=== PATIENT | female | born 1995 | race African-American/Black ===

== ENCOUNTER 2022-07-30 10:10 | Emergency (ER) | payer SELFPAY ==
[2022-07-30] VITALS (8 sets, daily range): BP systolic 137–143; BP diastolic 85–94; PULSE 102–127; RESP 18–20; TEMP 37.6; O2SAT 100; BMI 20.4
[2022-07-30 10:38] LABS: Appearance Urine Clear (Clear); Bilirubin Urine Negative (Negative); Blood Urine Negative (Negative); Color Urine Yellow (Yellow); Glucose Urine Negative (Negative); Ketones Urine 1+ (Negative); Leukocyte Esterase Urine Negative (Negative); Nitrite Urine Negative (Negative); Protein Urine Negative (Negative); Specific Gravity Urine >= 1.030 (1.000-1.030); Urobilinogen Urine 0.2 (0.2-1.0); pH Urine 8.5 (5.0-8.5)
[2022-07-30 11:18] LABS: RBC Urine 0-2 (0-2); WBC Urine 0-2 (0-5)
--- NOTE | 2022-07-30 11:35 | CRLHL7_ITS ---
For Patients: As a result of the Cures Act, medical imaging exams and procedure reports are released immediately into your electronic medical record. You may view this report before your referring provider. If you have questions, please contact your health care provider. INDICATION: Dyspnea COMPARISON: None TECHNIQUE: Sitting portable single view study FINDINGS: TUBES AND LINES: None. HEART AND MEDIASTINUM: The heart size is normal. The mediastinal contour appears normal for patient age. LUNGS AND PLEURAL SPACES: The lungs appear normal.The pleural spaces are unremarkable. OSSEOUS STRUCTURES: Age-appropriate appearance. No acute focal finding. IMPRESSION: No evidence of active pulmonary disease. Dictated by Ga Landrum MD @ 07/30/2022 12:43:25 PM (Electronically Signed)
--- NOTE | 2022-07-30 11:35 | ED_ITS ---
HPI - General Adult General Chief complaint: Headache/Migraine Stated complaint: Back pain/nausea//cough/headache Time Seen by Provider: 07/30/22 11:09 History of Present Illness HPI narrative: 26-year-old woman presenting to the emergency department complaint of left flank pain, general soreness, headache. She has vomited a little still feeling nauseated. Chills and a little short of breath as well. No cough reported. She thinks she has a kidney infection. Notes a history of renal stones and stenting. This sharp pain developed rather suddenly this morning. She has been taking the medications as does not have anything available. Just moved to the area from [place], [place]. Has not measured a fever. Does not have dysuria frequency urgency the notes with stones in the past has been absent of these kind of symptoms. She does not know why she might have developed a urinary tract infection. She is vaccinated for influenza but not for COVID. Related Data Previous Rx's Medication Instructions Recorded nirmatrelvir 300 mg (150 mg See Rx Instructions PO .COMPLEX 07/30/22 x2)-ritonavir 100 mg tablet,dose #30 ea pack(EUA) (Paxlovid) Allergies Allergy/AdvReac Type Severity Reaction Status Date / Time amoxicillin Allergy Mild Rash Verified 07/30/22 10:21 iodine Allergy Mild Rash Verified 07/30/22 10:21 Review of Systems Status of ROS: Reports: 6 or more systems reviewed and unremarkable except as noted in History and below [facility] Social History Smoking Status: Never smoker Do you use any of these nicotine containing products: None How often do you have a drink containing alcohol: monthly or less How many standard drinks containing alcohol do you have on a typical day: 1 or 2 AUDIT-C Alcohol total score: 1 Non-prescribed substance use: denies use Exam Narrative: Exam Narrative: I enter the exam room to find Steve doubled over in the bed face down at the foot of the bed. She sits up and I see that she is crying. Breathing easily. Lungs are clear. Oropharynx is moist. Not erythematous. Mucous membranes are not pale. Neck is supple without lymphadenopathy. Lungs are clear. Abdomen is soft and nontender other than sensitive to left flank percussion. Extremities are well perfused without edema. Const: Vital Signs, click to edit/add: Vital Signs - 24 hr 07/30/22 10:16 Temperature 99.6 F Pulse Rate [Right Pulse Oximeter] 110 H Respiratory Rate 18 Blood Pressure [Ri ght Upper Arm] 138/94 H Pulse Oximetry 100 Oxygen Delivery Me thod Room Air Documenting provider has reviewed patient's vital signs: yes Course Course Hospital Course: It seems more to be infectious etiology specifically influenza given what I had been seeing lately and will screen for this and other. Abrupt onset though and focus of flank pain suggests otherwise. Urinalysis pending. She would like full investigation with fluids and pain management this way as opposed to alternative of treating discomfort, urinalysis and take it from there with screening as above.''given ketoroloac, iv ns and zofran. overall improved. Vital Signs Vital signs: Initial Vital Signs Temperature 99.6 F 07/30/22 10:16 Temperature Source Temporal Artery Scan 07/30/22 10:16 Pulse Rate 110 H 07/30/22 10:16 Respiratory Rate 18 07/30/22 10:16 Blood Pressure 138/94 H 07/30/22 10:16 Blood Pressure Mean 108 07/30/22 10:16 Blood Pressure Position Sitting 07/30/22 10:16 Pulse Oximetry 100 07/30/22 10:16 Oxygen Delivery Method 07/30/22 10:16 Vital Signs Temperature 99.6 F 07/30/22 10:16 Pulse Rate 110 H 07/30/22 10:16 Respiratory Rate 18 07/30/22 10:16 Blood Pressure 138/94 H 07/30/22 10:16 Pulse Oximetry 100 07/30/22 10:16 Oxygen Delivery Method 07/30/22 10:16 Temperature 99.6 F 07/30/22 10:16 Pulse Rate 106 H 07/30/22 13:15 Respiratory Rate 20 07/30/22 12:02 Blood Pressure 143/93 H 07/30/22 13:01 Pulse Oximetry 100 07/30/22 13:15 Oxygen Delivery Method 07/30/22 12:02 Medical Decision Making MDM Narrative Medical decision making narrative: Initial labs returned indicates microcytic anemia hemoglobin of 10.1 ua concentrated otherwise clear. cxr by my read wnl. covid + Lab Data Lab results reviewed: Yes I reviewed the patient's lab results Labs: Lab Results 07/30/22 07/30/22 07/30/22 Range/Units 10:25 11:10 11:35 WBC 8.96 (4.50-11.00) K/uL RBC 4.61 (4.00-5.20) m/uL Hgb 10.1 L (12.0-16.0) gm/dL Hct 32.5 L (33.0-51.0) % MCV 71 L (80-100) fL MCH 22 L (26-34) pg MCHC 31 L (32-36) gm/dL RDW Coeff of Summer 17.0 H (11.5-15.5) % Plt Count 290 (140-440) K/uL Neut % (Auto) 93.3 H (42.0-72.0) % Lymph % (Auto) 2.0 L (20-44) % [place] % (Auto) 4.2 (0.0-11.0) % Eos % (Auto) 0.2 (0.0-7.0) % Baso % (Auto) 0.2 (0.0-3.0) % Neut # (Auto) 8.40 H (1.7-7.0) K/uL Lymph # (Auto) 0.20 L (0.90-2.90) K/uL [place] # (Auto) 0.40 (0.00-0.90) K/UL Eos # (Auto) 0.02 (0.00-0.50) K/uL Baso # (Auto) 0.02 (0.00-0.30) K/uL Abs Immat Gran (auto) 0.01 (0.00-0.30) K/uL Imm/Tot Granulo (auto) 0.1 % Sodium (135-149) mmol/L Potassium (3.6-5.1) mmol/L Chloride (96-114) mmol/L Carbon Dioxide (20-32) mmol/L BUN (5-24) mg/dL Creatinine (0.5-1.5) mg/dL Estimated Creat Clear Estimated GFR ml/min Glucose (60-115) mg/dL Calcium (8.4-10.6) mg/dL C-Reactive Protein (0.5-1.0) mg/dL Urine Color Yellow (Yellow) Urine Appearance Clear (Clear) Urine pH 8.5 (5.0-8.5) Ur Specific [place] >= 1.030 (1.000-1.030) Urine Protein Negative (Negative) Urine Glucose (UA) Negative (Negative) Urine Ketones 1+ A (Negative) Urine Blood Negative (Negative) Urine Nitrite Negative (Negative) Urine Bilirubin Negative (Negative) Urine Urobilinogen 0.2 (0.2-1.0) Ur Leukocyte Esterase Negative (Negative) Urine RBC 0-2 (0-2) Urine WBC 0-2 (0-5) Ur Squamous Epith Cells None (None-Few) Urine Bacteria None (None) SARS-CoV-2 (PCR) POSITIVE SARS-CoV-2 A (Negative) Influenza Type A (PCR) Negative PCR FLU A (Negative) Influenza Type B (PCR) Negative PCR FLU B (Negative) RSV (PCR) Negative PCR RSV (Negative) 07/30/22 Range/Units 11:35 WBC (4.50-11.00) K/uL RBC (4.00-5.20) m/uL Hgb (12.0-16.0) gm/dL Hct (33.0-51.0) % MCV (80-100) fL MCH (26-34) pg MCHC (32-36) gm/dL RDW Coeff of Summer (11.5-15.5) % Plt Count (140-440) K/uL Neut % (Auto) (42.0-72.0) % Lymph % (Auto) (20-44) % [place] % (Auto) (0.0-11.0) % Eos % (Auto) (0.0-7.0) % Baso % (Auto) (0.0-3.0) % Neut # (Auto) (1.7-7.0) K/uL Lymph # (Auto) (0.90-2.90) K/uL [place] # (Auto) (0.00-0.90) K/UL Eos # (Auto) (0.00-0.50) K/uL Baso # (Auto) (0.00-0.30) K/uL Abs Immat Gran (auto) (0.00-0.30) K/uL Imm/Tot Granulo (auto) % Sodium 135 (135-149) mmol/L Potassium 3.5 L (3.6-5.1) mmol/L Chloride 103 (96-114) mmol/L Carbon Dioxide 20 (20-32) mmol/L BUN 8 (5-24) mg/dL Creatinine 0.6 (0.5-1.5) mg/dL Estimated Creat Clear 115.98 Estimated GFR 126 ml/min Glucose 93 (60-115) mg/dL Calcium 9.2 (8.4-10.6) mg/dL C-Reactive Protein < 0.5 L (0.5-1.0) mg/dL Urine Color (Yellow) Urine Appearance (Clear) Urine pH (5.0-8.5) Ur Specific [place] (1.000-1.030) Urine Protein (Negative) Urine Glucose (UA) (Negative) Urine Ketones (Negative) Urine Blood (Negative) Urine Nitrite (Negative) Urine Bilirubin (Negative) Urine Urobilinogen (0.2-1.0) Ur Leukocyte Esterase (Negative) Urine RBC (0-2) Urine WBC (0-5) Ur Squamous Epith Cells (None-Few) Urine Bacteria (None) SARS-CoV-2 (PCR) (Negative) Influenza Type A (PCR) (Negative) Influenza Type B (PCR) (Negative) RSV (PCR) (Negative) Discharge Plan Discharge Clinical Impression: Acute left flank pain, SARS-CoV-2 positive, Myalgia Patient Disposition: Home, Self-Care Condition: Improved Additional Instructions: Focus on hydration. Can take up to 800 mg of ibuprofen or up to 1000 mg of acetaminophen per dose. Acetaminophen can be combined with ibuprofen or naproxen. Naproxen could be used in place of ibuprofen at up to 500 mg 2 times daily. Recommendations are to quarantine yourself for 10 days from onset of symptoms. In 3 weeks or so or once you are feeling markedly improved, would encourage you to get vaccinated for COVID. If this specific flank pain is escalating, you are noting some hematuria or other symptoms that you would associate with a kidney stone still in 4-5 days, would follow up for consideration of imaging. You are also a little anemic. It looks to be microcytic and might be related to low iron/or improved with iron supplementation. Look at this further in followup once you establish primary care please. If you start to be come increasingly short of breath, get yourself an oximetry monitor and return to the emergency department for oxygen saturations are 90% or less. Prescriptions: New Paxlovid (EUA) 300 mg (150 mg x 2)-100 mg tablets,dose pack See Rx Instructions .ROUTE .COMPLEX Qty: 30 0RF Rx Instructions: take TWO 150 mg tablets of nirmatrelvir with ONE 100 mg tablet of ritonavir twice daily for 5 days Stand Alone Forms: [facility]
[2022-07-30 11:45] LABS: Basophils Absolute Auto 0.02 K/uL (0.00-0.30); Basophils Percent Auto 0.2 % (0.0-3.0); Eosinophils Absolute Auto 0.02 K/uL (0.00-0.50); Eosinophils Percent Auto 0.2 % (0.0-7.0); Hematocrit 32.5 % (33.0-51.0); Hemoglobin* 10.1 gm/dL (12.0-16.0); Immature Granulocytes Abs Auto 0.01 K/uL (0.00-0.30); Immature Granulocytes Pct Auto 0.1 %; Mean Corpuscular HGB Conc 31 gm/dL (32-36); Mean Corpuscular Hemoglobin 22 pg (26-34); Mean Corpuscular Volume 71 fL (80-100); Monocytes Percent Auto 4.2 % (0.0-11.0); Neutrophils Percent Auto 93.3 % (42.0-72.0); Platelet Count* 290 K/uL (140-440); Red Blood Count 4.61 m/uL (4.00-5.20); White Blood Count* 8.96 K/uL (4.50-11.00)
[2022-07-30 11:47] LABS: Slide Review Reflex No
[2022-07-30] MEDS: 0.9 % SODIUM CHLORIDE 1000 ml 1,000 ML IV (11:53)
[2022-07-30] MEDS: ONDANSETRON 2 MG/ML inj 4 MG IVP (11:53)
[2022-07-30] MEDS: KETOROLAC 30 MG/ML inj IVP (11:54)
[2022-07-30 11:57] LABS: Chloride* 103 mmol/L (96-114); Sodium* 135 mmol/L (135-149)
[2022-07-30 11:58] LABS: Potassium* 3.5 mmol/L (3.6-5.1)
[2022-07-30 12:00] LABS: Creatinine* 0.6 mg/dL (0.5-1.5); Est. Creatinine Clearance* 115.98; Estimated Glomerular Filt Rate 126 ml/min
[2022-07-30 12:01] LABS: Blood Urea Nitrogen* 8 mg/dL (5-24); Calcium* 9.2 mg/dL (8.4-10.6); Carbon Dioxide* 20 mmol/L (20-32); Glucose* 93 mg/dL (60-115)
[2022-07-30 12:05] LABS: C Reactive Protein* < 0.5 mg/dL (0.5-1.0)
[2022-07-30 12:23] LABS: PCR FLU A Negative PCR FLU A (Negative); PCR FLU B Negative PCR FLU B (Negative); PCR RSV Negative PCR RSV (Negative)
[2022-07-30 12:26] LABS: SARS PCR* POSITIVE SARS-CoV-2 (Negative)
== END 2022-07-30 13:22 | disposition home or self-care (01) ==
PROVIDERS: Emergency Provider Family Medicine
DX: U07.1 COVID-19 (principal); R68.83 Chills (without fever); R51.9 Headache, unspecified; M79.12 Myalgia of auxiliary muscles, head and neck; R10.9 Unspecified abdominal pain
CPT/HCPCS: 36415; 71045; 80048; 81001; 81015; 85025; 86140; 87493; 87502; 87634; 87635; 94761; 96361; 96374; 96375; 99284; J1885; J2405; J7030